=== PATIENT | female | born 1975 | race American Indian/Alaskan Native ===

== ENCOUNTER 2018-09-27 04:18 | Emergency (ER) | payer MEDICAID ==
[2018-09-27 04:27] VITALS: BP 109/76
--- NOTE | 2018-09-27 07:53 | Emergency Department Report ---
HPI - General Chief Complaint: Dental/Oral Time Seen by Provider: 09/27/18 07:21 - HPI HPI: This is a 43-year-old female here reported that she has toothache and tooth abscess to right lower tooth. She reports pain 10/10 that feels achy and throbbing that time worse with talking and eating. Denies any sore throats or difficulty swallowing or breathing. Denies any nasal congestion or cough. Denies any fever or chills or any respiratory distress. [id number] Motrin taken for pain without any relief. Pain started 2 days ago and it is constant. No alleviating factors ED Past Medical Hx - Past Medical History Previous Medical History?: No - Surgical History Past Surgical History?: Yes Additional Surgical History: tublal - Family History Family history: hypertension - Social History Smoking Status: Current Every Day Smoker Substance Use Type: None - Medications Home Medications: Home Medications Medication Instructions Recorded Confirmed Last Taken Type Acetaminophen/Codeine [Tylenol 1 tab PO Q6H PRN #14 tab 09/27/18 Unknown Rx /Codeine # 3 tab] Clindamycin [Clindamycin CAP] 300 mg PO Q8H 10 Days #30 cap 09/27/18 Unknown Rx Ibuprofen [Motrin] 800 mg PO Q8HR PRN #12 tablet 09/27/18 Unknown Rx ED Review of Systems ROS: Stated complaint: MOUTH PAIN Other details as noted in HPI Comment: All other systems reviewed and negative Constitutional: denies: chills, fever ENT: dental pain. denies: ear pain, throat pain, congestion Respiratory: denies: cough, shortness of breath, wheezing Cardiovascular: denies: chest pain, palpitations Gastrointestinal: denies: abdominal pain, nausea, vomiting Musculoskeletal: denies: back pain Skin: denies: rash Neurological: denies: headache Physical Exam - Physical Exam Vital Signs: Vital Signs 09/27/18 04:26 Temperature 98.0 F Pulse Rate 80 Respiratory 16 Rate Blood Pressure 109/76 O2 Sat by Pulse 97 Oximetry General: This is a 43-year-old female well-nourished well-developed in no acute distress. Physical Exam: Head: Normocephalic atraumatic Ears:BIateral TM pearly cary . Leonel EAC with normal exam. No mastoid bone tenderness. Mouth: Moist, no pharyngeal erythema or exudate . Tongue is normal and oral airways patent. Uvula is midline. Small abscess noted around tooth #28. No fluctuance. Minimal induration. Positive tenderness to palpate around tooth #28. Dental caries noted. Lip is normal. Neck: Nontender to palpate, supple, normal range of motion. No adenopathy. No c- spine tenderness. Nose: Bilateral nasal mucosa normal exam maxillary and frontal sinuses non- tender to palpate. Eyes: Bilateral Sclerae and conjunctiva without injection. Bilateral pupils equal and reactive to light. Bilateral lids are normal. Normal accommodation.BEOMI Lungs: Clear to auscultate bilaterally, no rhonchi wheezes or rales. Normal work of breathing s CV: S1, S2. Regular rate and rhythm negative murmur. Capillary refill is less than 3 seconds Extremity: No clubbing, cyanosis or edema. Skin: Clean dry and intact, no rashes or lesions ED Course Vital Signs 09/27/18 04:26 Temperature 98.0 F Pulse Rate 80 Respiratory 16 Rate Blood Pressure 109/76 O2 Sat by Pulse 97 Oximetry - Reevaluation(s) Reevaluation #1: 09/27/18 08:40 Patient given clindamycin 600 mg by mouth Nicholson 5/325 2 tablets. Emergency room for pain and to start treatment for dental infection. ED Medical Decision Making - Medical Decision Making Patient here for toothache and dental abscess. She was evaluated and found to have small indurated area around tooth #8 with tenderness to palpate and dental cavities noted. I discussed with her diagnosis and treatment plan and that she will need to follow up with a dentist for further evaluation and treatment to call in 2 days to schedule an appointment and she voiced understanding. Patient was given Nicholson and clindamycin emergency room and prescription for Tylenol 3, Motrin and clindamycin and discharged home in stable condition to follow up with dentist. Critical care attestation.: If time is entered above; I have spent that time in minutes in the direct care of this critically ill patient, excluding procedure time. ED Disposition Clinical Impression: Tooth ache, Dental abscess, Dental caries Disposition: TO HOME OR SELFCARE Is pt being admited?: No Does the pt Need Aspirin: No Condition: Stable Instructions: Dental Abscess (ED), Toothache (ED), Dental Caries (ED) Additional Instructions: Please follow-up with dentist and 3-5 days. Condition worsens return to the emergency room Take Motrin for mild pain as prescribed and Tylenol 3 for moderate to severe pain. Please do not drive or operate heavy machinery while taking and Tylenol 3 at this medication causes drowsiness Take clindamycin antibiotic for infection. Referrals: LINDSAY PULIDO MD [Primary Care Provider] - 3-5 Days [facility] [Outside] - 3-5 Days [facility] [Outside] - 3-5 Days Forms: Work/School Release Form(ED)
[2018-09-27] MEDS ORDERED: NORCO 5/325 PO ONE (08:40)
[2018-09-27] MEDS ORDERED: CLEOCIN PO ONE (08:40)
== END 2018-09-27 09:10 | disposition home or self-care (01) ==
LOC: ED 04:18 → EDBD 04:18 → ED 09:10
DX: K04.7 Periapical abscess without sinus (principal); K02.9 Dental caries, unspecified; F17.200 Nicotine dependence, unspecified, uncomplicated
CPT/HCPCS: 99282